=== PATIENT | female | born 1970 | race African-American/Black ===

== ENCOUNTER 2017-08-25 22:21 | Emergency (ER) | payer MEDICAID, OTHER ==
--- NOTE | 2017-08-25 23:31 | ER Document Report ---
ED General - General Chief Complaint: Nausea/Vomiting Stated Complaint: VOMITING/STOMACH PAIN Time Seen by Provider: 08/25/17 23:11 Notes: Patient is a 37-year-old female who presents with complaints of epigastric burning type pain and vomiting. She has had this epigastric pain for many years. Said it comes and goes. She does admit that she drinks many cups of coffee a day. She says sometimes she can drink close to 20 cups of coffee a day. Over the last few days she just a lot of recurrent vomiting and burning. No fevers. No diarrhea. No blood in her stool. No black tarry stools. No blood or emesis. She has never had endoscopy. She says in the past she has been placed on dicyclomine for this which has helped some. She denies any dysuria. No lower abdominal pain. No alcohol use. She does smoke. Patient says that she has been taking baking soda to help with pain. - Related Data Allergies/Adverse Reactions: No Known Allergies Allergy (Verified 07/18/13 15:40) Past Medical History - Social History Smoking Status: Current Every Day Smoker Frequency of alcohol use: None Drug Abuse: None Family History: Reviewed & Not Pertinent Patient has suicidal ideation: No Patient has homicidal ideation: No - Past Medical History Cardiac Medical History: Reports: Hx Hypertension - after Denies: Hx DVT, Hx Pulmonary Embolism Renal/ Medical History: Denies: Hx Ectopic , Hx Ovarian Cysts, Hx Peritoneal Dialysis Skin Medical History: Denies Hx MRSA Past Surgical History: Reports: Hx Section - Immunizations Hx Diphtheria, Pertussis, Tetanus Vaccination: Yes Review of Systems - Review of Systems Notes: My Normal Review Basic REVIEW OF SYSTEMS: CONSTITUTIONAL : Denies fever, chills, or sweats. Denies recent illness. CARDIOVASCULAR: Denies chest pain. RESPIRATORY: Denies cough, cold, or chest congestion. Denies shortness of breath, difficulty breathing, or wheezing. GASTROINTESTINAL: Epigastric abdominal pain. Vomiting GENITOURINARY: Denies difficulty urinating, painful urination, burning, frequency, or blood in urine. MUSCULOSKELETAL: Denies neck or back pain or joint pain or swelling. SKIN: Denies rash or skin lesions. NEUROLOGICAL: Denies altered mental status or loss of consciousness. Denies headache. Denies weakness or paralysis or loss of use of either side. Denies problems with gait or speech. Denies sensory or motor loss. ALL OTHER SYSTEMS REVIEWED AND NEGATIVE. Physical Exam - Vital signs Vitals: Temp Pulse Resp BP Pulse Ox 98.9 F 76 20 126/77 H 99 08/25/17 22:28 08/25/17 22:28 08/25/17 22:28 08/25/17 22:28 08/25/17 22:28 - Notes Notes: General Appearance: Well nourished, alert, cooperative, no acute distress, mild obvious discomfort. Well-appearing Vitals: reviewed, See vital signs table. Head: no swelling or tenderness to the head Eyes: PERRL, EOMI, Conjuctiva clear Mouth: No decreasd moisture Lungs: No wheezing, No rales, No rhonci, No accessory muscle use, good air exchange bilaterally. Heart: Normal rate, Regular rythm, No murmur, no rub Abdomen: Normal BS, soft, No rigidity, mild epigastric abdominal tenderness to palpation, No guarding, no rebound, Extremities: strength 5/5 in all extremities, good pulses in all extremities, no swelling or tenderness in the extremities, no edema. Skin: warm, dry, appropriate color, no rash Neuro: speech clear, oriented x 3, normal affect, responds appropriately to questions. Course - Re-evaluation Re-evalutation: 08/26/17 05:43 Talk to patient length informed her that she really needs to stop drinking such large amounts of coffee and quit smoking. Her symptoms very consistent with that of gastritis and continues use of coffee and smoking will likely make this worse. Also informed her she should follow-up with GI to talk about endoscopy as she has been having the symptoms for a long period time and she could eventually develop Granados's esophagus, worsening gastritis, bleeding ulcer, or gastric cancer. Patient will be given Carafate. She is also encouraged to take Pepcid every day. Patient to return to ER immediately if she has following up blood, recurrent vomiting, worsening pain, black tarry stools, or she feels unwell. Patient agrees with plan will be discharged home. Dictation of this chart was performed using voice recognition software; therefore, there may be some unintended grammatical errors. - Vital Signs Vital signs: Temp Pulse Resp BP Pulse Ox 98.7 F 75 17 134/72 H 99 08/26/17 01:59 08/26/17 01:59 08/26/17 01:59 08/26/17 01:59 08/26/17 01:59 - Laboratory Result Diagrams: 08/25/17 23:35 08/25/17 23:35 Laboratory results interpreted by me: 08/25/17 08/25/17 23:35 23:35 Hgb 11.6 L MCV 74 L MCH 23.5 L RDW 18.1 H Chloride 108 H Discharge - Discharge Clinical Impression: Abdominal pain Qualifiers: Abdominal location: epigastric Qualified Code(s): R10.13 - Epigastric pain Condition: Good Disposition: HOME, SELF-CARE Additional Instructions: Gastritis You have an inflammation of the stomach called gastritis. This commonly causes upper abdominal pain, nausea, and vomiting. In severe cases, bleeding of the stomach lining can occur. Gastritis can be caused by bacteria or viruses , alcohol, or stomach-irritating drugs. Begin with sips of clear liquids. Take increasing amounts of fluid over the first 24 hours. Then start small amounts of bland foods (such as dry toast , applesauce, mashed potato). Gradually resume your usual diet. You should take antacids every two hours until the pain has subsided. Acid -suppressing drugs may be prescribed as well. Avoid aspirin, caffeine, tobacco , and alcohol. If the abdominal pain worsens, or there is evidence of major bleeding in the stomach (such as black, tarry stool, bloody or black vomit, or lightheadedness), you should return immediately. Call the doctor if you aren't improved in 24 to 36 hours. Please return to the ER immediately if you develop recurrent vomiting, vomiting of blood, or black or bloody stools. Please follow up with the GI physician, Dr. Corral. You need to be evaluated for possible endoscopy. This is important as recurrent untreated acid reflux or gastritis can lead to cancerous or precancerous conditions. Please quit smoking and continue to gradually cut back on your coffee intake. Prescriptions: Famotidine [Pepcid 40 mg Tablet] 40 mg PO DAILY #30 tablet Sucralfate [Carafate Susp 1 Gm/10 Ml Udcup] 1 gm PO ACHS 10 Days udc Forms: Return to Work Referrals: BRENDA CORRAL MD [ACTIVE STAFF] - Follow up in 3-5 days
[2017-08-25] MEDS ORDERED: LIDOCAINE 2% VISCOUS SOLN 20 ML UDCUP PO ONE (23:32)
[2017-08-25] MEDS ORDERED: MAG HYDROX/AL HYDROX/SIMETH SUSP 30 ML UDCUP PO ONE (23:32)
[2017-08-25] MEDS ORDERED: METOCLOPRAMIDE HCL ORAL SOLN 10 MG/10 ML UDCUP PO ONE (23:32)
[2017-08-25] MEDS ORDERED: ONDANSETRON 4 MG TAB.RAPDIS PO ONE (23:32)
[2017-08-25 23:51] LABS: ABSOLUTE EOSINOPHILS # (AUTO) 0.1 10^3/uL (0.0-0.6); ABSOLUTE LYMPHOCYTES (AUTO) 2.1 10^3/uL (0.5-4.7); ABSOLUTE MONOCYTES (AUTO) 0.6 10^3/uL (0.1-1.4); ABSOLUTE NEUT (AUTO) 5.1 10^3/uL (1.7-8.2); BASOPHILS % (AUTO) 0.6 % (0-2); EOSINOPHILS % (AUTO) 1.9 % (0-6); HEMATOCRIT 36.3 % (36.0-47.0); HEMOGLOBIN 11.6 g/dL (12.0-15.5); LYMPHOCYTES % (AUTO) 26.1 % (13-45); MEAN CORPUSCULAR HEMOGLOBIN 23.5 pg (27.0-33.4); MEAN CORPUSCULAR VOLUME 74 fl (80-97); MONOCYTES % (AUTO) 7.6 % (3-13); PLATELET COUNT 215 10^3/uL (150-450); RED BLOOD COUNT 4.94 10^6/uL (3.72-5.28); RED CELL DISTRIBUTION WIDTH 18.1 % (11.5-14.0); SEGMENTED NEUTROPHILS % (AUTO) 63.8 % (42-78); TOTAL CELLS COUNTED % (AUTO) 100 %
[2017-08-26 00:02] LABS: ALANINE AMINOTRANSFERASE 30 U/L (9-52); ALBUMIN 4.4 g/dL (3.5-5.0); ALKALINE PHOSPHATASE 64 U/L (38-126); ANION GAP 11 (5-19); ASPARTATE AMINO TRANSFERASE 26 U/L (14-36); BILIRUBIN,DIRECT 0.2 mg/dL (0.0-0.4); BILIRUBIN,TOTAL 0.2 mg/dL (0.2-1.3); BLOOD UREA NITROGEN 8 mg/dL (7-20); CALCIUM 9.8 mg/dL (8.4-10.2); CARBON DIOXIDE 25 mmol/L (22-30); CHLORIDE 108 mmol/L (98-107); GLUCOSE 91 mg/dL (75-110); LIPASE 117.5 U/L (23-300); SODIUM 144.3 mmol/L (137-145); TOTAL PROTEIN 7.7 g/dL (6.3-8.2)
[2017-08-26] MEDS ORDERED: ONDANSETRON ODT 4 MG TAB (6 TAB/ER DISP) PO PRN (01:44)
[2017-08-26] MEDS ORDERED: FAMOTIDINE 20 MG TABLET PO ONE (01:44)
[2017-08-26 01:59] VITALS: BP 134/72
== END 2017-08-26 01:59 | disposition home or self-care (01) ==
LOC: ER 22:21
DX: R10.13 Epigastric pain (principal); R11.2 Nausea with vomiting, unspecified; F17.210 Nicotine dependence, cigarettes, uncomplicated
CPT/HCPCS: 99284; 36415; 83690; 85025; 80053; S0119; J3490

== ENCOUNTER 2017-12-31 15:06 | Emergency (ER) | payer OTHER ==
[2017-12-31 15:12] VITALS: BP 122/64
--- NOTE | 2017-12-31 15:30 | ER Document Report ---
ED General - General Chief Complaint: Headache Stated Complaint: HEADACHE Time Seen by Provider: 12/31/17 15:14 TRAVEL OUTSIDE OF THE [place] IN LAST 30 DAYS: No - HPI Patient complains to provider of: Headache Notes: Patient coming in for headache frontal with a little bit of pain in the back of her head states ongoing for the last few days no relief with NSAIDs. Patient also states pain and the maxillary sinus region patient denies any runny nasal drainage cough. Patient states that her coworkers have noticed that her voice is changed. Patient states that she currently works third shift intermittently notices her headaches improve when she continues her caffeine worsen whenever she stopped taking her caffeine. Patient also states that there is an abundance of dust at her employment environment. Patient denies any fevers chills nausea vomiting diarrhea denies any trauma. Patient resting comfortably upon my evaluation. - Related Data Allergies/Adverse Reactions: No Known Allergies Allergy (Verified 12/31/17 15:26) Past Medical History - Social History Smoking Status: Current Every Day Smoker Chew tobacco use (# tins/day): No Frequency of alcohol use: None Drug Abuse: None Family History: Reviewed & Not Pertinent Patient has suicidal ideation: No Patient has homicidal ideation: No - Past Medical History Cardiac Medical History: Reports: Hx Hypertension - after Denies: Hx DVT, Hx Pulmonary Embolism Renal/ Medical History: Denies: Hx Ectopic , Hx Ovarian Cysts, Hx Peritoneal Dialysis Skin Medical History: Denies Hx MRSA Past Surgical History: Reports: Hx Section - Immunizations Hx Diphtheria, Pertussis, Tetanus Vaccination: Yes Review of Systems - Review of Systems Constitutional: No symptoms reported EENT: Nose congestion, Other - Headache Cardiovascular: No symptoms reported Respiratory: No symptoms reported Gastrointestinal: No symptoms reported Genitourinary: No symptoms reported Female Genitourinary: No symptoms reported Musculoskeletal: No symptoms reported Skin: No symptoms reported Hematologic/Lymphatic: No symptoms reported Neurological/Psychological: No symptoms reported Physical Exam - Vital signs Vitals: Temp Pulse Resp BP Pulse Ox 99.1 F 91 20 122/64 99 12/31/17 15:10 12/31/17 15:10 12/31/17 15:10 12/31/17 15:10 12/31/17 15:10 Interpretation: Normal - General General appearance: Appears well, Alert - HEENT Head: Normocephalic, Tenderness - Tenderness in the frontalis region of the forehead also tenderness just above the occipital area bilaterally adjacent to the inion Eyes: Normal Conjunctiva: Normal Cornea: Normal Pupils: PERRL Ears: Normal External canal: Normal Tympanic membrane: Normal Sinus: Normal Nasal: Other - Swollen turbinates bilaterally Mouth/Lips: Normal Pharynx: Normal Neck: Normal - Respiratory Respiratory status: No respiratory distress Chest status: Nontender Breath sounds: Normal Chest palpation: Normal - Cardiovascular Rhythm: Regular Heart sounds: Normal auscultation Murmur: No - Abdominal Inspection: Normal Distension: No distension Bowel sounds: Normal Tenderness: Nontender Organomegaly: No organomegaly - Back Back: Normal, Nontender - Extremities General upper extremity: Normal inspection, Nontender, Normal color, Normal ROM , Normal temperature General lower extremity: Normal inspection, Nontender, Normal color, Normal ROM , Normal temperature, Normal weight bearing. No: Megan's sign - Neurological Neuro grossly intact: Yes Cognition: Normal Orientation: AAOx4 Margarita Coma Scale Eye Opening: Spontaneous Margarita Coma Scale Verbal: Oriented Margarita Coma Scale Motor: Obeys Commands [place] Coma Scale Total: 15 Speech: Normal Motor strength normal: LUE, RUE, LLE, RLE Sensory: Normal - Psychological Associated symptoms: Normal affect, Normal mood - Skin Skin Temperature: Warm Skin Moisture: Dry Skin Color: Normal Course - Re-evaluation Re-evalutation: 12/31/17 20:39 Patient was to have a component of a tension headache along with nasal congestion. Various treatment options for the nasal congestion were given to the patient antihistamine [id number] along with versus a direct nasal congestion such as Afrin. Patient has elected to try the distal steroid. Patient was given a prescription for Flonase. Patient's examination is consistent with a tension headache tenderness to the frontalis region and occipital region of the head. Patient was encouraged to continue take Tylenol and Motrin for headache I did prescribe the patient Fioricet for her head pain if the Tylenol Motrin combination to not improve her headache. Patient states understanding of these instructions and her medical diagnosis patient was discharged home. - Vital Signs Vital signs: Temp Pulse Resp BP Pulse Ox 99.1 F 91 20 122/64 99 12/31/17 15:10 12/31/17 15:10 12/31/17 15:10 12/31/17 15:10 12/31/17 15:10 Discharge - Discharge Clinical Impression: Nasal congestion, Tension headache Condition: Good Disposition: HOME, SELF-CARE Instructions: Headache ([facility]), Nasal Sprays and Drops ([facility]), Tension Headache ( [facility]) Additional Instructions: Your physical examination today reveals nasal congestion more likely due to the dust that you are exposed to at her job along with the mold and dust in the air from the recent tropical events. I recommend taking [id number] antihistamine along with Flonase. Please use Flonase as prescribed. Your headache seems to be consistent with a tension headache. I recommend a combination of Tylenol Motrin to help out with your headache if this does not ease her symptoms then I recommend taking the Fioricet as prescribed. Follow- up with your primary care physician return to ER symptoms worsen. Prescriptions: Butalb/Acetaminophen/Caffeine [Fioricet 50-300-40 mg Capsule] 1 cap PO Q4 PRN # 24 cap PRN Reason: Fluticasone Propionate [Flonase Nasal [place] 50 Mcg/[place] 16 gm] 1 spray NASL Q12 #1 inhaler Forms: Smoking Cessation Education Referrals: LOCALMD,NO [NO LOCAL MD] - Follow up as needed
== END 2017-12-31 15:37 | disposition home or self-care (01) ==
LOC: ER 15:06
DX: R09.81 Nasal congestion (principal); G44.209 Tension-type headache, unspecified, not intractable; F17.200 Nicotine dependence, unspecified, uncomplicated
CPT/HCPCS: 99283

== ENCOUNTER 2019-06-08 20:48 | Emergency (ER) | payer BC, OTHER ==
[2019-06-08] MEDS ORDERED: SUCRALFATE 1 GM TABLET PO ONE (23:18)
--- NOTE | 2019-06-08 23:22 | ER Document Report ---
ED GI/ - General Chief Complaint: Epigastric Pain Stated Complaint: NAUSEA AND VOMITING Time Seen by Provider: 06/08/19 22:56 Notes: Patient is a 48 year old female that comes to the Emergency Department for chief complaint of epigastric pain. She states she has been dealing with this for weeks, intermittently it is worse, today it felt really painful just prior to coming to the emergency department. She did take Reglan, dicyclomine which she was prescribed and her symptoms almost resolved. She states that symptoms are worse after eating greasy foods, drinking caffeine, and sometimes just randomly. She denies flank pain, vomiting, abnormal bowel movements, fever/chills, sore throat, cough. No recent long distance travel. She smokes, denies alcohol or recreational drugs, she has had a , she denies medical history othe rwise. She states 2 weeks ago she had an ultrasound of the upper abdomen and was told it was normal. TRAVEL OUTSIDE OF THE [place] IN LAST 30 DAYS: No - Related Data Allergies/Adverse Reactions: No Known Allergies Allergy (Verified 12/31/17 15:26) Home Medications: [email or web address] Past Medical History - General Information source: Patient - Social History Smoking Status: Current Every Day Smoker Smoking Education Provided: Yes - <3 min Frequency of alcohol use: None Drug Abuse: None Lives with: Family Family History: Reviewed & Not Pertinent Patient has suicidal ideation: No Patient has homicidal ideation: No - Past Medical History Cardiac Medical History: Reports: Hx Hypertension - after Denies: Hx DVT, Hx Pulmonary Embolism Renal/ Medical History: Denies: Hx Ectopic , Hx Ovarian Cysts, Hx Peritoneal Dialysis Skin Medical History: Denies Hx MRSA Past Surgical History: Reports: Hx Section - Immunizations Hx Diphtheria, Pertussis, Tetanus Vaccination: Yes Review of Systems - Review of Systems Constitutional: No symptoms reported EENT: No symptoms reported Cardiovascular: No symptoms reported Respiratory: No symptoms reported Gastrointestinal: See HPI Genitourinary: No symptoms reported Female Genitourinary: No symptoms reported Musculoskeletal: No symptoms reported Skin: No symptoms reported Hematologic/Lymphatic: No symptoms reported Neurological/Psychological: No symptoms reported Physical Exam - Vital signs Vitals: Temp Pulse Resp BP Pulse Ox 98.7 F 62 16 129/51 H 98 06/08/19 22:52 06/08/19 22:52 06/08/19 22:52 06/08/19 22:52 06/08/19 22:52 - Notes Notes: GENERAL: Alert, interacts well. No acute distress. HEAD: Normocephalic, atraumatic. EYES: Pupils equal, round, and reactive to light. Extraocular movements intact. ENT: Oral mucosa moist, tongue midline. Oropharynx unremarkable. Airway patent. LUNGS: Clear to auscultation bilaterally, no wheezes, rales, or rhonchi. No respiratory distress. HEART: Regular rate and rhythm. No murmur ABDOMEN: Very minimal tenderness in the epigastric area. Otherwise unremarkable. No guarding or rigidity. Bowel sounds present. GENITOURINARY: Deferred EXTREMITIES: Moves all 4 extremities spontaneously. No edema, normal radial and dorsalis pedis pulses bilaterally. No cyanosis. BACK: no cervical, thoracic, lumbar midline tenderness. No saddle anesthesia, normal distal neurovascular exam. Moves all extremities in full range of motion. NEUROLOGICAL: Alert and oriented x3. Normal speech. Cranial nerves II through XI I grossly intact. PSYCH: Normal affect, normal mood. SKIN: Warm, dry, normal turgor. No rashes or lesions noted. Course - Re-evaluation Re-evalutation: Based on patient's presentation, ongoing intermittent symptoms, lack of sick sym ptoms, I have rather low suspicion of coronavirus. Patient has mild epigastric tenderness on exam but no noted wincing, guarding, or signs of discomfort. She has no symptoms at rest like she did earlier. She was given Carafate, work-up pending. Work-up unremarkable other than mild microcytic anemia. Lipase negative, urine unremarkable. Patient reports to me that she just had a negative ultrasound within the past 2 weeks. I suspect gastritis. Patient drinks frequent caffeine and smokes. Symptoms are also significantly improved with Bentyl. She is asking for more Bentyl. I discussed suspected gastritis, possible other etiologies, treatment, close follow-up, and return precautions in detail. Patient states appreciation and agreement. Stable at time of discharge. - Vital Signs Vital signs: Temp Pulse Resp BP Pulse Ox 98.3 F 66 16 121/68 99 06/09/19 01:13 06/09/19 01:13 06/09/19 01:13 06/09/19 01:13 06/09/19 01:13 - Laboratory Result Diagrams: 06/09/19 00:08 06/09/19 00:08 Laboratory results interpreted by me: 06/08/19 06/09/19 06/09/19 23:07 00:08 00:08 Hgb 10.9 L Hct 32.3 L MCV 74 L MCH 25.1 L RDW 17.4 H Sodium 135.6 L Anion Gap 4 L BUN 5 L Urine Blood SMALL H Discharge - Discharge Clinical Impression: Epigastric pain Condition: Stable Disposition: HOME, SELF-CARE Additional Instructions: Based on your evaluation today, your recent ultrasound, and your symptoms I suspect that you have gastritis. There is still a possibility that you have gallbladder dyskinesis, take treatment as prescribed, follow-up with primary care for additional testing including possible HIDA scan, H. pylori testing, etc. Take Zofran for nausea, take Carafate and Pepcid as prescribed to help treat this, you can take additional Rolaids, Tums, Maalox, etc. if needed. You can take Bentyl and/or Tylenol for pain. Avoid NSAIDs, alcohol, smoking, caffeine, spicy food. Start with clear fluids, progress to bland diet. Return if you worsen including uncontrolled vomiting, vomiting blood, black stools, severe pain, fever of 100.4 or greater, or any other concerning or worsening symptoms. Prescriptions: Dicyclomine HCl [Bentyl 20 mg Tablet] 20 mg PO QID PRN #20 tablet PRN Reason: Sucralfate [Carafate 1 gm Tablet] 1 gm PO QID #20 tablet Famotidine [Pepcid 20 mg Tablet] 20 mg PO BID #14 tablet Ondansetron [Zofran Odt 4 mg Tablet] 1 - 2 tab PO Q4H PRN #15 tab.rapdis PRN Reason: For Nausea/Vomiting Forms: Return to Work
[2019-06-09 00:34] LABS: ABSOLUTE EOSINOPHILS # (AUTO) 0.2 10^3/uL (0.0-0.6); ABSOLUTE LYMPHOCYTES (AUTO) 2.4 10^3/uL (0.5-4.7); ABSOLUTE MONOCYTES (AUTO) 0.3 10^3/uL (0.1-1.4); ABSOLUTE NEUT (AUTO) 3.3 10^3/uL (1.7-8.2); BASOPHILS % (AUTO) 0.4 % (0-2); EOSINOPHILS % (AUTO) 2.5 % (0-6); HEMATOCRIT 32.3 % (36.0-47.0); HEMOGLOBIN 10.9 g/dL (12.0-15.5); MEAN CORPUSCULAR HEMOGLOBIN 25.1 pg (27.0-33.4); MEAN CORPUSCULAR HGB CONC 33.8 g/dL (32.0-36.0); MEAN CORPUSCULAR VOLUME 74 fl (80-97); MONOCYTES % (AUTO) 5.3 % (3-13); PLATELET COUNT 196 10^3/uL (150-450); RED BLOOD COUNT 4.34 10^6/uL (3.72-5.28); RED CELL DISTRIBUTION WIDTH 17.4 % (11.5-14.0); SEGMENTED NEUTROPHILS % (AUTO) 53.8 % (42-78); TOTAL CELLS COUNTED % (AUTO) 100 %; WHITE BLOOD COUNT 6.2 10^3/uL (4.0-10.5)
[2019-06-09 00:43] LABS: APPEARANCE,URINE CLEAR; BILIRUBIN,URINE NEGATIVE (NEGATIVE); COLOR,URINE STRAW; GLUCOSE, URINE NEGATIVE (NEGATIVE); KETONES,URINE NEGATIVE (NEGATIVE); LEUKOCYTE ESTERASE,URINE NEGATIVE (NEGATIVE); NITRITE,URINE NEGATIVE (NEGATIVE); PROTEIN,URINE NEGATIVE (NEGATIVE); URINE SPECIFIC GRAVITY 1.004; UROBILINOGEN,URINE NEGATIVE mg/dL (<2.0)
[2019-06-09 00:53] LABS: ALBUMIN 3.7 g/dL (3.5-5.0); ALKALINE PHOSPHATASE 59 U/L (38-126); ASPARTATE AMINO TRANSFERASE 26 U/L (14-36); BILIRUBIN,TOTAL 0.2 mg/dL (0.2-1.3); BLOOD UREA NITROGEN 5 mg/dL (7-20); CALCIUM 9.2 mg/dL (8.4-10.2); CARBON DIOXIDE 27 mmol/L (22-30); CHLORIDE 105 mmol/L (98-107); GLUCOSE 83 mg/dL (75-110); POTASSIUM 4.2 mmol/L (3.6-5.0); TOTAL PROTEIN 6.8 g/dL (6.3-8.2)
[2019-06-09 00:59] LABS: ANION GAP 4 (5-19)
[2019-06-09 01:15] VITALS: BP 121/68
== END 2019-06-09 01:23 | disposition home or self-care (01) ==
LOC: ER 20:48
DX: R10.13 Epigastric pain (principal); R10.816 Epigastric abdominal tenderness; D50.9 Iron deficiency anemia, unspecified; F17.200 Nicotine dependence, unspecified, uncomplicated; I10 Essential (primary) hypertension
CPT/HCPCS: 36415; 80053; 81001; 83690; 84703; 85025; 99284

== ENCOUNTER 2019-07-17 10:31 | Emergency (ER) | payer BC ==
--- NOTE | 2019-07-17 11:18 | ER Document Report ---
ED Respiratory Problem - General Chief Complaint: Cold Symptoms Stated Complaint: COUGH Time Seen by Provider: 07/17/19 10:44 Notes: CHIEF COMPLAINT: Cough and shortness of breath for 1 week HPI: 48-year-old female presenting for cough with shortness of breath for 1 week. No wheezing. No fever. Denies chest pain. 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 ROS: See HPI - all other systems were reviewed and are otherwise negative Constitutional: no fever Eyes: no drainage, no blurred vision ENT: no runny nose, no sore throat Cardiovascular: no chest pain Resp: + SOB, + cough GI: no vomiting, no diarrhea, no abdominal pain : no dysuria Integumentary: no rash Allergy: no hives Musculoskeletal: no extremity pain or swelling Neurological: no numbness/tingling, no weakness MEDICATIONS: I agree with the patient medications as charted by the RN. ALLERGIES: I agree with the allergies as charted by the RN. PAST MEDICAL HISTORY/PAST SURGICAL HISTORY: Reviewed and agree as charted by RN. SOCIAL HISTORY: Reviewed and agree as charted by RN. FAMILY HISTORY: No significant familial comorbid conditions directly related to patient complaint EXAM: Reviewed vital signs as charted by RN. CONSTITUTIONAL: Alert and oriented and responds appropriately to questions. Well-appearing; well-nourished HEAD: Normocephalic; atraumatic EYES: PERRL; Conjunctivae clear, sclerae non-icteric ENT: normal nose; no rhinorrhea; moist mucous membranes; pharynx without lesions noted, no uvula edema or deviation, no tonsillar hypertrophy, phonation normal NECK: Supple without meningismus; non-tender; no cervical lymphadenopathy, no masses CARD: RRR; no murmurs, no clicks, no rubs, no gallops; symmetric distal pulses RESP: Normal chest excursion without splinting or tachypnea; breath sounds clear and equal bilaterally; no wheezes, no rhonchi, no rales ABD/GI: Normal bowel sounds; non-distended; soft, non-tender, no rebound, no guarding; no palpable organomegaly or masses. BACK: The back appears normal and is non-tender to palpation, there is no CVA tenderness EXT: Normal ROM in all joints; non-tender to palpation; no cyanosis, no effusions, no edema SKIN: Normal color for age and race; warm; dry; good turgor; no acute lesions noted NEURO: Moves all extremities equally; Motor and sensory function intact PSYCH: The patient's mood and manner are appropriate. Grooming and personal hygiene are appropriate. MDM: 48-year-old female presenting with shortness of breath for the last week with a slight cough. Coworker tested positive for COVID-19. Will obtain chest x-ray. Will obtain EKG given the patient's age although she has no chest pain with this. Will obtain COVID screening test. Patient does not become dyspneic with speaking. TRAVEL OUTSIDE OF THE [place] IN LAST 30 DAYS: No - Related Data Allergies/Adverse Reactions: No Known Allergies Allergy (Verified 12/31/17 15:26) Past Medical History - Social History Smoking Status: Unknown if Ever Smoked Family History: Reviewed & Not Pertinent - Past Medical History Cardiac Medical History: Reports: Hx Hypertension - after Denies: Hx DVT, Hx Pulmonary Embolism Renal/ Medical History: Denies: Hx Ectopic , Hx Ovarian Cysts, Hx Peritoneal Dialysis Skin Medical History: Denies Hx MRSA Past Surgical History: Reports: Hx Section - Immunizations Hx Diphtheria, Pertussis, Tetanus Vaccination: Yes Physical Exam - Vital signs Vitals: Temp Pulse Resp BP Pulse Ox 98.0 F 83 16 140/77 H 99 07/17/19 10:31 07/17/19 10:31 07/17/19 10:07/17/19 10:07/17/19 10:31 Course - Re-evaluation Re-evalutation: 07/17/19 12:05 Chest x-ray does not show evidence of significant infiltrate. EKG normal sinus rhythm without significant ectopy. Will discharge home with prescription for albuterol inhaler. She will be informed of PUI status. Low suspicion for ACS in this patient at this time with upper respiratory symptoms - Vital Signs Vital signs: Temp Pulse Resp BP Pulse Ox 98.0 F 83 16 140/77 H 99 07/17/19 10:31 07/17/19 10:31 07/17/19 10:31 07/17/19 10:31 07/17/19 10:31 Discharge - Discharge Clinical Impression: Cough, Shortness of breath Condition: Stable Disposition: HOME, SELF-CARE Additional Instructions: Use the albuterol inhaler 2 puffs every 4 hours as needed for shortness of breath. Your chest x-ray and EKG did not show acute emergent abnormalities. You are considered a person under investigation at this time go home and q uarantine for the next 14 days or until you have your COVID-19 test results. If you have worsening shortness of breath or onset of chest discomfort return for reevaluation Prescriptions: Albuterol Sulfate [Proair HFA Inhalation Aerosol 8.5 gm MDI] 2 puff IH Q4H PRN #1 mdi PRN Reason:
[2019-07-17 11:51] VITALS: BP 140/77
--- NOTE | 2019-07-17 12:09 | RADIOLOGY REPORT (SQ) ---
EXAM DESCRIPTION: CHEST SINGLE VIEW IMAGES COMPLETED DATE/TIME: 07/17/2019 11:49 am REASON FOR STUDY: sob COMPARISON: None. EXAM PARAMETERS: NUMBER OF VIEWS: One view. TECHNIQUE: An AP view of the chest was obtained. RADIATION DOSE: NA LIMITATIONS: None. FINDINGS: LUNGS AND PLEURA: No consolidation, pleural effusion or pneumothorax. MEDIASTINUM AND HILAR STRUCTURES: No mediastinal or hilar contour abnormality. HEART AND VASCULAR STRUCTURES: The cardiac silhouette and pulmonary vasculature are within normal marie its. BONES: No acute findings. HARDWARE: None in the chest. OTHER: No other finding. IMPRESSION: No acute cardiopulmonary process. TECHNICAL DOCUMENTATION: JOB ID: [id number] 2010 [employer]- All Rights Reserved Reading location - IP/workstation name: [email or web address]
--- NOTE | 2019-07-17 12:53 | EKG REPORT ---
SEVERITY:- BORDERLINE ECG - SINUS RHYTHM PROBABLE LEFT ATRIAL ABNORMALITY : Confirmed by: Frankie Dykes MD 17-Jul-2019 12:53:01
== END 2019-07-17 12:20 | disposition home or self-care (01) ==
LOC: ER 10:31
DX: R05 Cough (principal); R06.02 Shortness of breath; I10 Essential (primary) hypertension; Z20.828 Contact with and (suspected) exposure to other viral communicable diseases; Z79.899 Other long term (current) drug therapy
CPT/HCPCS: 71045; 87635; 93005; 93010; 99285

== ENCOUNTER 2019-11-12 16:52 | Emergency (ER) | payer BC ==
--- NOTE | 2019-11-12 18:10 | ER Document Report ---
ED Medical Screen (RME) - General Chief Complaint: Abdominal Pain Stated Complaint: ABDOMINAL PAIN Time Seen by Provider: 11/12/19 18:07 Information source: Patient Notes: Patient presents complaining of upper abdominal pain for several months that worsened over the past 3 days. Patient states that she is in the process of seeing a GI doctor getting set up for upper endoscopy. Patient reports nausea without vomiting. Patient reports diarrhea x4 episodes today. Patient denies any fever. Patient has been taking Bentyl and Zofran without improvement of her symptoms. I have greeted and performed a rapid initial assessment of this patient. A comprehensive ED assessment and evaluation of the patient, analysis of test results and completion of the medical decision making process will be conducted by additional ED providers. TRAVEL OUTSIDE OF THE [place] IN LAST 30 DAYS: No - Related Data Allergies/Adverse Reactions: No Known Allergies Allergy (Verified 12/31/17 15:26) Past Medical History - Social History Frequency of alcohol use: None Drug Abuse: None - Past Medical History Cardiac Medical History: Reports: Hx Hypertension - after Denies: Hx DVT, Hx Pulmonary Embolism Renal/ Medical History: Denies: Hx Ectopic , Hx Ovarian Cysts, Hx Peritoneal Dialysis Skin Medical History: Denies Hx MRSA Past Surgical History: Reports: Hx Section - Immunizations Hx Diphtheria, Pertussis, Tetanus Vaccination: Yes Physical Exam - Vital signs Vitals: Temp Pulse Resp BP Pulse Ox 99.1 F 76 18 124/69 100 11/12/19 17:12 11/12/19 17:12 11/12/19 17:12 11/12/19 17:12 11/12/19 17:12 - Abdominal Tenderness: Tender - Epigastric Course - Vital Signs Vital signs: Temp Pulse Resp BP Pulse Ox 99.1 F 76 18 124/69 100 11/12/19 17:12 11/12/19 17:12 11/12/19 17:12 11/12/19 17:12 11/12/19 17:12
[2019-11-12 18:58] LABS: ABSOLUTE EOSINOPHILS # (AUTO) 0.1 10^3/uL (0.0-0.6); ABSOLUTE LYMPHOCYTES (AUTO) 1.8 10^3/uL (0.5-4.7); ABSOLUTE MONOCYTES (AUTO) 0.2 10^3/uL (0.1-1.4); ABSOLUTE NEUT (AUTO) 2.6 10^3/uL (1.7-8.2); BASOPHILS % (AUTO) 0.6 % (0-2); EOSINOPHILS % (AUTO) 1.3 % (0-6); HEMATOCRIT 35.4 % (36.0-47.0); HEMOGLOBIN 11.3 g/dL (12.0-15.5); MEAN CORPUSCULAR HEMOGLOBIN 23.2 pg (27.0-33.4); MEAN CORPUSCULAR HGB CONC 31.9 g/dL (32.0-36.0); MEAN CORPUSCULAR VOLUME 73 fl (80-97); MONOCYTES % (AUTO) 4.4 % (3-13); PLATELET COUNT 192 10^3/uL (150-450); RED BLOOD COUNT 4.88 10^6/uL (3.72-5.28); RED CELL DISTRIBUTION WIDTH 16.9 % (11.5-14.0); SEGMENTED NEUTROPHILS % (AUTO) 54.7 % (42-78); TOTAL CELLS COUNTED % (AUTO) 100 %; WHITE BLOOD COUNT 4.7 10^3/uL (4.0-10.5)
[2019-11-12 19:07] LABS: APPEARANCE,URINE CLEAR; BILIRUBIN,URINE NEGATIVE (NEGATIVE); COLOR,URINE STRAW; GLUCOSE, URINE NEGATIVE (NEGATIVE); KETONES,URINE NEGATIVE (NEGATIVE); LEUKOCYTE ESTERASE,URINE NEGATIVE (NEGATIVE); NITRITE,URINE NEGATIVE (NEGATIVE); PROTEIN,URINE NEGATIVE (NEGATIVE); URINE SPECIFIC GRAVITY 1.008; UROBILINOGEN,URINE NEGATIVE mg/dL (<2.0)
[2019-11-12 19:26] LABS: ALBUMIN 4.4 g/dL (3.5-5.0); ALKALINE PHOSPHATASE 65 U/L (38-126); ANION GAP 8 (5-19); ASPARTATE AMINO TRANSFERASE 29 U/L (14-36); BILIRUBIN,DIRECT 0.3 mg/dL (0.0-0.4); BILIRUBIN,TOTAL 0.4 mg/dL (0.2-1.3); BLOOD UREA NITROGEN 5 mg/dL (7-20); CALCIUM 9.5 mg/dL (8.4-10.2); CARBON DIOXIDE 26 mmol/L (22-30); CHLORIDE 105 mmol/L (98-107); GLUCOSE 87 mg/dL (75-110); POTASSIUM 4.2 mmol/L (3.6-5.0); TOTAL PROTEIN 7.9 g/dL (6.3-8.2)
--- NOTE | 2019-11-12 22:49 | ER Document Report ---
ED Medical Screen (E) - General Chief Complaint: Abdominal Pain Stated Complaint: ABDOMINAL PAIN Time Seen by Provider: 11/12/19 18:07 Mode of Arrival: Ambulatory Information source: Patient Notes: Emergency Provider: JANNYMarty Number: [id number] Chief Complaint: Epigastric Pain Stated Complaint: NAUSEA AND VOMITING Time Seen by Provider: 06/08/19 22:56 Notes: Patient is a 48 year old female that comes to the Emergency Department for chief complaint of epigastric pain. She states she has been dealing with this for weeks, intermittently it is worse, today it felt really painful just prior to coming to the emergency department. She did take Reglan, dicyclomine which she was prescribed and her symptoms almost resolved. She states that symptoms are worse after eating greasy foods, drinking caffeine, and sometimes just randomly. She denies flank pain, vomiting, abnormal bowel movements, fever/chills, sore throat, cough. No recent long distance travel. She smokes, denies alcohol or recreational drugs, she has had a , she denies medical history otherwise. She states 2 weeks ago she had an ultrasound of the upper abdomen and was told it was normal. TRAVEL OUTSIDE OF THE [place] IN LAST 30 DAYS: No 11/12/19 18:04 - ED Nursing Note by CISCO WILLSON [facility] Num: [id number] : 1970 Patient Age: 49 patient arrives to ED with c/o abdominal pain that has been present "for a while". The abdominal pain is intermittent for months. Pt reports the pain worsened over the weekend. Patient has nausea and diarrhea. Denies fever. The patient is currently being treated for acid reflux, she is seeing a GI specialist at the end of November. No acute distress noted, breathing is even and unlabored, speaking in complete and clear sentences. ED Medical Screen (Francois raphael) - General Chief Complaint: Abdominal Pain Stated Complaint: ABDOMINAL PAIN Time Seen by Provider: 11/12/19 18:07 Information source: Patient Notes: Patient presents complaining of upper abdominal pain for several months that worsened over the past 3 days. Patient states that she is in the process of seeing a GI doctor getting set up for upper endoscopy. Patient reports nausea without vomiting. Patient reports diarrhea x4 episodes today. Patient denies any fever. Patient has been taking Bentyl and Zofran without improvement of her symptoms. MY NOTES TODAY 49-year-old black female arrives with chronic epigastric pain pointing to substernal distal area of abdomen. Patient reports GI cocktail does work on her pain but she works at [employer] in [place] and needs a work note. Patient is currently being treated for GERD and takes Bentyl for this dicyclomine. She is scheduled to see a GI specialist next month but has never been diagnosed with peptic ulcer disease or hiatal hernia. KUB taken in room reveals no obvious SBO or free air. She does have a hepatomegaly. She denies any alcohol use. Patient also advises her appetite has decreased and she cannot tolerate any [employer] [place] food Serbian food and has subsisted on oatmeal strawberry and blueberry type for the last month or so. She does well on Carafate and I advised Carafate slurry's with Mylanta and also probiotic if possible. Will avoid any treatment with antibiotics until evaluated by gastroenterology. TRAVEL OUTSIDE OF THE [place] IN LAST 30 DAYS: No - HPI Onset: Other - x several months Quality of pain: Achy Severity: Mild Pain Level: 1 Associated Symptoms: Abdominal pain, Weakness Exacerbated by: Food Relieved by: Other - Avoiding spicy foods Similar symptoms previously: Yes Recently seen / treated by doctor: No - Related Data Allergies/Adverse Reactions: No Known Allergies Allergy (Verified 12/31/17 15:26) Past Medical History - General Information source: Patient - Social History Cigarette use (# per day): No Chew tobacco use (# tins/day): No Frequency of alcohol use: None Drug Abuse: None Lives with: Family Family history: Reviewed & Not Pertinent - Past Medical History Cardiac Medical History: Reports: Hx Hypertension - after Denies: Hx DVT, Hx Pulmonary Embolism Renal/ Medical History: Denies: Hx Ectopic , Hx Ovarian Cysts, Hx Peritoneal Dialysis Skin Medical History: Denies Hx MRSA Past Surgical History: Reports: Hx Section - Immunizations Hx Diphtheria, Pertussis, Tetanus Vaccination: Yes Review of Systems - Review of Systems Constitutional: No symptoms reported EENT: No symptoms reported Cardiovascular: No symptoms reported Respiratory: No symptoms reported Gastrointestinal: See HPI, Abdominal pain, Nausea Genitourinary: No symptoms reported Female Genitourinary: No symptoms reported Musculoskeletal: No symptoms reported Skin: No symptoms reported Hematologic/Lymphatic: No symptoms reported Neurological/Psychological: No symptoms reported Physical Exam - Vital signs Vitals: Temp Pulse Resp BP Pulse Ox 99.1 F 76 18 124/69 100 11/12/19 17:12 11/12/19 17:12 11/12/19 17:12 11/12/19 17:12 11/12/19 17:12 Interpretation: Febrile - General General appearance: Appears well - HEENT Head: Normocephalic, Atraumatic Eyes: Normal Pupils: PERRL Mouth/Lips: Normal Mucous membranes: Normal Pharynx: Normal Neck: Normal - Respiratory Respiratory status: No respiratory distress Chest status: Nontender Breath sounds: Normal Chest palpation: Normal - Cardiovascular Rhythm: Regular Heart sounds: Normal auscultation Murmur: No - Abdominal Inspection: Normal Tenderness: Tender - Epigastric area Organomegaly: Hepatomegaly - Rectal Hemorrhoids: Other - deferred - Genitourinary Bimanuel exam: Other - deferred - Back Back: Normal - Extremities General upper extremity: Normal inspection General lower extremity: Normal inspection - Neurological Neuro grossly intact: Yes Cognition: Normal Orientation: AAOx4 Margarita Coma Scale Eye Opening: Spontaneous [place] Coma Scale Verbal: Oriented [place] Coma Scale Motor: Obeys Commands [place] Coma Scale Total: 15 Speech: Normal Motor strength normal: LUE, RUE, LLE, RLE Sensory: Normal - Psychological Associated symptoms: Normal affect - Skin Skin Temperature: Warm Skin Moisture: Dry Course - Vital Signs Vital signs: Temp Pulse Resp BP Pulse Ox 99.1 F 76 18 124/69 100 11/12/19 17:12 11/12/19 17:12 11/12/19 17:12 11/12/19 17:12 11/12/19 17:12 - Laboratory Result Diagrams: 11/12/19 18:35 11/12/19 18:35 Laboratory results interpreted by me: 11/12/19 11/12/19 11/12/19 18:35 18:35 18:35 Hgb 11.3 L Hct 35.4 L MCV 73 L MCH 23.2 L MCHC 31.9 L RDW 16.9 H BUN 5 L Urine Blood LARGE H - Diagnostic Test Radiology reviewed: Reports reviewed Doctor's Discharge - Discharge Clinical Impression: Epigastric abdominal pain, PUD (peptic ulcer disease) Condition: Good Disposition: HOME, SELF-CARE Additional Instructions: Follow-up with insurance agents supervisor or PMD. Try to avoid large foods large meals and try to eat smaller meals; may want to do ice cream with lactobacillus probiotic or yogurt. Try taking Carafate as a slurry. Continue with your Bentyl. Off work as directed. Avoid aspirin or nonsteroidal products Prescriptions: Sucralfate [Carafate 1 gm Tablet] 1 gm PO ACHS #40 tablet Forms: Return to Work
[2019-11-12] MEDS ORDERED: METOCLOPRAMIDE HCL ORAL SOLN 10 MG/10 ML UDCUP PO ONE (23:08)
[2019-11-12] MEDS ORDERED: LIDOCAINE 2% VISCOUS SOLN 15 ML UDCUP PO ONE (23:08)
[2019-11-12] MEDS ORDERED: MAG HYDROX/AL HYDROX/SIMETH SUSP 30 ML UDCUP PO ONE (23:08)
--- NOTE | 2019-11-12 23:30 | RADIOLOGY REPORT (SQ) ---
EXAM DESCRIPTION: XR ABDOMEN 1 VIEW (KUB) COMPLETED DATE/TME: 11/12/2019 22:53 CLINICAL HISTORY: 49 years, Female, abd pain COMPARISON: 07/18/2013 abdomen NUMBER OF VIEWS: 1 TECHNIQUE: AP abdomen LIMITATIONS: None. FINDINGS: The bowel gas pattern is nonspecific. Abundant gas and stool in the colon. Evaluation for free air limited on a supine view IMPRESSION: Abundant gas and stool in the colon copyright 2010 [employer]- All Rights Reserved
[2019-11-12 23:57] VITALS: BP 103/84
== END 2019-11-12 23:58 | disposition home or self-care (01) ==
LOC: ER 16:52
DX: K27.9 Peptic ulcer, site unspecified, unspecified as acute or chronic, without hemorrhage or perforation (principal); K21.9 Gastro-esophageal reflux disease without esophagitis; R16.0 Hepatomegaly, not elsewhere classified; R10.13 Epigastric pain; R14.3 Flatulence; G89.29 Other chronic pain; R11.0 Nausea; R19.7 Diarrhea, unspecified; R63.0 Anorexia; R53.1 Weakness; Z79.899 Other long term (current) drug therapy; I10 Essential (primary) hypertension; R10.816 Epigastric abdominal tenderness
CPT/HCPCS: 99284; 36415; 83690; 85025; 80053; 81001; 74018; J3490